=== PATIENT | male | born 1940 | race Caucasian/White ===

== ENCOUNTER → 2023-11-07 09:57 | Outpatient (REF) | payer MEDICARE, OTHER, SELFPAY ==
[2023-11-07 12:14] LABS: Glycohemoglobin (HgbA1c) 7.7 % (4.0-5.6)
== END ==
LOC: HWLAB 09:57
PROVIDERS: ATTENDING PHYSICIAN Internal Medicine
DX: E11.9 Type 2 diabetes mellitus without complications (principal)
CPT/HCPCS: 36415; 83036

== ENCOUNTER → 2024-02-18 10:16 | Outpatient (REF) | payer MEDICARE, OTHER, SELFPAY ==
[2024-02-18 13:16] LABS: Blood Urea Nitrogen 12 mg/dl (9-20); Calcium 9.3 mg/dl (8.4-10.2); Carbon Dioxide 25 mmol/L (22-30); Chloride 106 mmol/L (98-107); Glucose 158 mg/dl (70-99); HDL Cholesterol 66 mg/dl; LDL Cholesterol, Calculated 60 mg/dl; Phosphorus 4.1 mg/dl (2.5-4.5); Potassium 4.3 mmol/L (3.5-5.1); Sodium 139 mmol/L (135-145); Total Cholesterol 143 mg/dl (50-199); Triglyceride 85 mg/dl (10-149); Very Low Density Lipoprotein 17 mg/dl (0-30); eGFR > 60.00
== END ==
LOC: HWLAB 10:16
PROVIDERS: ATTENDING PHYSICIAN Internal Medicine
DX: E11.9 Type 2 diabetes mellitus without complications (principal)
CPT/HCPCS: 36415; 80061; 80069

== ENCOUNTER → 2024-02-23 10:42 | Outpatient (REF) | payer MEDICARE, OTHER, SELFPAY ==
[2024-02-24 08:46] LABS: Glycohemoglobin (HgbA1c) 7.3 % (4.0-5.6)
== END ==
LOC: HWLAB 10:42
PROVIDERS: ATTENDING PHYSICIAN Internal Medicine
DX: E11.9 Type 2 diabetes mellitus without complications (principal)
CPT/HCPCS: 36415; 83036

== ENCOUNTER → 2024-02-27 09:01 | Outpatient (REF) | payer MEDICARE, OTHER, SELFPAY | LOC: RAD 09:01 | PROVIDERS: ATTENDING PHYSICIAN Surgery Vascular Surgery | DX: I77.89 Other specified disorders of arteries and arterioles (principal); I73.9 Peripheral vascular disease, unspecified | CPT/HCPCS: 93922; 93925; 93978 ==

== ENCOUNTER → 2024-05-26 10:38 | Outpatient (REF) | payer MEDICARE, OTHER, SELFPAY ==
[2024-05-26 13:26] LABS: % Basophils 1.4 % (0-2); % Eosinophils 7.3 % (0-6); % Immature Granulocytes 0.4 % (0-0.5); % Lymphocytes 24.2 % (20.5-51.1); % Monocytes 10.2 % (1.7-9.3); % Neutrophils 56.5 % (42.2-75.2); Absolute Basophils 0.1 10^3/uL (0-0.2); Absolute Eosinophils 0.4 10^3/uL (0-0.7); Absolute Lymphocytes 1.2 10^3/uL (1.2-3.4); Absolute Monocytes 0.5 10^3/uL (0.1-0.6); Absolute Neutrophils 2.9 10^3/uL (1.4-6.5); Hematocrit 47.2 % (39.0-52.0); Mean Corp Hgb Conc. 33.9 g/dL (33.0-37.0); Mean Corpuscular Hgb 32.2 pg (27.0-31.0); Mean Platelet Volume 10.2 fL (7.4-10.4); Nucleated Red Blood Cells % 0 % (-); Platelet Count 174 10^3/uL (130-400); Red Blood Cell Count 4.97 10^6/uL (4.70-6.10); Red Cell Dist. Width 14.4 % (11.5-14.5); White Blood Cell Count 5.1 10^3/uL (4.8-10.8)
[2024-05-26 14:05] LABS: Glycohemoglobin (HgbA1c) 7.2 % (4.0-5.6)
[2024-05-26 14:19] LABS: ALT (SGPT) 20 U/L (0-50); AST (SGOT) 26 U/L (17-59); Albumin 3.8 g/dl (3.5-5.0); Alkaline Phosphatase 68 U/L (38-126); Blood Urea Nitrogen 16 mg/dl (9-20); Calcium 9.1 mg/dl (8.4-10.2); Carbon Dioxide 25 mmol/L (22-30); Chloride 103 mmol/L (98-107); Glucose 195 mg/dl (70-99); Potassium 4.4 mmol/L (3.5-5.1); Sodium 140 mmol/L (135-145); Total Bilirubin 0.6 mg/dl (0.2-1.3); Total Protein 6.5 g/dl (6.3-8.2); eGFR > 60.00
[2024-05-26 14:48] LABS: TSH Reflex To Free T4 1.86 uIU/ml (0.47-4.68)
== END ==
LOC: HWLAB 10:38
PROVIDERS: ATTENDING PHYSICIAN Internal Medicine
DX: E11.9 Type 2 diabetes mellitus without complications (principal); R63.4 Abnormal weight loss; R29.6 Repeated falls
CPT/HCPCS: 36415; 80053; 83036; 84443; 85025

== ENCOUNTER → 2024-09-08 10:17 | Outpatient (REF) | payer MEDICARE, OTHER, SELFPAY ==
[2024-09-08 13:35] LABS: Glycohemoglobin (HgbA1c) 7.4 % (4.0-5.6)
== END ==
LOC: HWLAB 10:17
PROVIDERS: ATTENDING PHYSICIAN Internal Medicine
DX: E11.9 Type 2 diabetes mellitus without complications (principal)
CPT/HCPCS: 36415; 83036

== ENCOUNTER → 2024-10-26 12:50 | Outpatient (REF) | payer MEDICARE, OTHER, SELFPAY | LOC: HWRCS 12:50 | PROVIDERS: ATTENDING PHYSICIAN Internal Medicine Cardiovascular Disease; FAMILY PHYSICIAN Internal Medicine | DX: I48.0 Paroxysmal atrial fibrillation (principal) | CPT/HCPCS: 93306 ==

== ENCOUNTER → 2025-01-20 10:52 | Outpatient (REF) | payer MEDICARE, OTHER, SELFPAY ==
[2025-01-20 14:16] LABS: Glycohemoglobin (HgbA1c) 7.3 % (4.0-5.6)
== END ==
LOC: HWLAB 10:52
PROVIDERS: ATTENDING PHYSICIAN Internal Medicine
DX: E11.69 Type 2 diabetes mellitus with other specified complication (principal)
CPT/HCPCS: 36415; 83036

== ENCOUNTER 2025-01-28 13:11 | Emergency (ER) | payer MEDICARE, OTHER, SELFPAY ==
[2025-01-28] VITALS (19 sets, daily range): BP systolic 75–144; BP diastolic 55–89
[2025-01-28 13:40] LABS: % Basophils 1.2 % (0-2); % Eosinophils 2.3 % (0-6); % Immature Granulocytes 0.3 % (0-0.5); % Lymphocytes 24.6 % (20.5-51.1); % Monocytes 9.7 % (1.7-9.3); % Neutrophils 61.9 % (42.2-75.2); Absolute Basophils 0.1 10^3/uL (0-0.2); Absolute Eosinophils 0.1 10^3/uL (0-0.7); Absolute Lymphocytes 1.5 10^3/uL (1.2-3.4); Absolute Monocytes 0.6 10^3/uL (0.1-0.6); Absolute Neutrophils 3.7 10^3/uL (1.4-6.5); Hematocrit 48.5 % (39.0-52.0); Mean Corpuscular Hgb 30.9 pg (27.0-31.0); Mean Corpuscular Volume 93.6 fL (80.0-94.0); Mean Platelet Volume 9.6 fL (7.4-10.4); Nucleated Red Blood Cells % 0 % (-); Platelet Count 173 10^3/uL (130-400); Red Blood Cell Count 5.18 10^6/uL (4.70-6.10); Red Cell Dist. Width 15.5 % (11.5-14.5)
[2025-01-28 14:01] LABS: ALT (SGPT) 22 U/L (0-50); AST (SGOT) 27 U/L (17-59); Albumin 4.1 g/dl (3.5-5.0); Alkaline Phosphatase 76 U/L (38-126); Blood Urea Nitrogen 14 mg/dl (9-20); Calcium 9.2 mg/dl (8.4-10.2); Carbon Dioxide 23 mmol/L (22-30); Chloride 107 mmol/L (98-107); Glucose 155 mg/dl (70-99); Potassium 4.3 mmol/L (3.5-5.1); Sodium 139 mmol/L (135-145); Total Bilirubin 0.8 mg/dl (0.2-1.3); Total Protein 7.1 g/dl (6.3-8.2); eGFR > 60.00
[2025-01-28 15:12] LABS: Troponin I 0.015 ng/ml
--- NOTE | 2025-01-28 15:49 | ED.GENMED ---
History of Present Illness
<Kali Monge PA-C - Last Filed: 01/28/25 19:18>
General
Chief Complaint: Heart Rate Problem
Source: patient
Exam Limitations: none
Time Seen by Provider: 01/28/25 15:25
History of Present Illness
History of Present Illness:
84-year-old male presents in referral from family doctor after family doctor spoke with cardiology. He has history of paroxysmal atrial fibrillation on Xarelto metoprolol succinate 50 mg daily. He was asymptomatic going to his family doctor today
for routine check and he was noticed to be in rapid A-fib. He was sent here for further evaluation. He denies chest pain shortness of breath lightheadedness leg swelling. Really has no complaints offer.
Past History
<Kali Monge PA-C - Last Filed: 01/28/25 19:18>
Past History
ED Past Medical History: NIDDM
ED Past Surgical History: None
Social History
Tobacco: Smoker (A couple cigarettes a week)
Alcohol: None
Drug: None
Personal:
Phy Exam
<Kali Monge PA-C - Last Filed: 01/28/25 19:18>
Physical Exam
Physical Exam:
General: Well-appearing male no acute respiratory distress
HEENT: Normocephalic atraumatic
Heart: Tachycardic and irregular
Lungs: Clear no wheeze
Extremities: No cyanosis or edema
Skin is warm no rash
Course
<Kali Monge PA-C - Last Filed: 01/28/25 19:18>
Orders/Labs/Results
Orders:
Orders
01/28/25 13:13
EKG [Electrocardiogram (*1)] Urgent
Reason for Study: Atrial Fibrillation
EKG- Treatment ONCE
01/28/25 13:30
Complete Blood Count/With Diff Urgent
Comprehensive Metabolic Panel Urgent
Troponin I Urgent
01/28/25 17:42
Propofol [Diprivan] 20 ml .ROUTE .STK-MED
01/28/25 17:57
EKG [Electrocardiogram (*1)] Urgent
Reason for Study: Other
Other Reason for Exam: post cardioversion
01/28/25 17:58
EKG- Treatment ONCE
01/28/25 18:02
Etomidate [Amidate 20 mg] 20 mg .ROUTE .STK-MED ONE
Abnormal Lab Results
01/28/25
13:30
RDW 15.5 H %
(11.5-14.5)
Monocytes % 9.7 H %
(1.7-9.3)
Glucose 155 H mg/dl
(70-99)
01/28/25 13:30
01/28/25 13:30
Vital Signs
Initial and Last Documented VS:
Initial Vital Signs
Temp Pulse Resp BP Pulse Ox
97.7 F 103 16 136/75 96
01/28/25 13:22 01/28/25 13:22 01/28/25 13:22 01/28/25 13:22 01/28/25 13:22
Last Documented Vital Signs
Temp Pulse Resp BP Pulse Ox
98.0 F 75 18 100/74 98
01/28/25 18:41 01/28/25 19:17 01/28/25 19:17 01/28/25 19:17 01/28/25 19:17
<Enriqueta Dent DO - Last Filed: 01/29/25 00:13>
Orders/Labs/Results
Orders:
Orders
01/28/25 13:13
EKG [Electrocardiogram (*1)] Urgent
Reason for Study: Atrial Fibrillation
EKG- Treatment ONCE
01/28/25 13:30
Complete Blood Count/With Diff Urgent
Comprehensive Metabolic Panel Urgent
Troponin I Urgent
01/28/25 17:42
Propofol [Diprivan] 20 ml .ROUTE .STK-MED
01/28/25 17:57
EKG [Electrocardiogram (*1)] Urgent
Reason for Study: Other
Other Reason for Exam: post cardioversion
01/28/25 17:58
EKG- Treatment ONCE
01/28/25 18:02
Etomidate [Amidate 20 mg] 20 mg .ROUTE .STK-MED ONE
Abnormal Lab Results
01/28/25
13:30
RDW 15.5 H %
(11.5-14.5)
Monocytes % 9.7 H %
(1.7-9.3)
Glucose 155 H mg/dl
(70-99)
01/28/25 13:30
01/28/25 13:30
Vital Signs
Initial and Last Documented VS:
Initial Vital Signs
Temp Pulse Resp BP Pulse Ox
97.7 F 103 16 136/75 96
01/28/25 13:22 01/28/25 13:22 01/28/25 13:22 01/28/25 13:22 01/28/25 13:22
Last Documented Vital Signs
Temp Pulse Resp BP Pulse Ox
98.0 F 75 18 100/74 98
01/28/25 18:41 01/28/25 19:17 01/28/25 19:17 01/28/25 19:17 01/28/25 19:17
Procedures
Ericksonlt;Kali Monge PA-C - Last Filed: 01/28/25 19:18>
Moderate Sedation
ASA Risk Score: Class II
Chart and allergies reviewed: Yes
Consent for anesthesia obtained: Yes
Time out completed (validating right patient & procedure): Yes
Moderate Sedation Start Time(when first medication is given): 18:04
History of difficult intubation: No
Airway free of obstruction: Yes
Patient has a gag reflex: Yes
Patient is able to open mouth: Yes
Patient has no dentures: Yes
Patient has no loose teeth: Yes
Medication administered by Provider during Moderate Sedation: Other (etomidate)
Total dose administered: 20
Time drug administered: 18:04
Moderate Sedation Procedure End Time: 18:19
<Kali Monge PA-C - Last Filed: 01/28/25 19:18>
MDM/Problems Addressed
Differential Diagnosis Includes:
Patient sent in for rapid atrial fibrillation. He is asymptomatic. Blood pressure stable no signs of heart failure. EKG demonstrates rapid A-fib. Patient is anticoagulated on metoprolol succinate 50 mg daily for rate control
<Kali Monge PA-C - Last Filed: 01/28/25 19:18>
*Critical Care Note
Total Time (30-74mins, 75-104mins- exclusive of procedures): Not Applicable
<Kali Monge PA-C - Last Filed: 01/28/25 19:18>
Update Note
Update Note:
Discussed findings with cardiology. Cardiology recommended cardioversion. Just prior to cardioversion the patient was hypotensive. Etomidate was used for sedation. A total of 2 shocks were required synchronized 2 at 200 J. The second shock did
convert the patient back to sinus rhythm. Blood pressure has improved. He has been ambulatory here and recovered from sedation. Stable for discharge
ED Attending Note
<aKli Monge PA-C - Last Filed: 01/28/25 19:18>
-
Portions of this chart may have been created with voice recognition software.� Occasional wrong word or��sound alike� substitutions may have occurred due to the inherent limitations of voice recognition software.
<Enriqueta Dent, DO - Last Filed: 01/29/25 00:13>
ED Attending Note
Patient seen and examined by attending physician: Yes
I performed the substantive portion of visit, reviewed & personally made and approve the management plan that is documented in note by myself or ALEXA.: Yes
ED Attending Note:
I have reviewed and agree with Kali Monge PA-C's history and treatment plan. Heart tachycardic, irregularly irregular. Just prior to cardioversion, patient became hypotensive. Used etomidate for sedation. Patient successfully
cardioverted, blood pressure improved immediately. Stable for discharge with cardiology follow-up
Discharge Plan
Departure
Patient Disposition: Home (Routine Discharge)
Date of Disposition: 01/28/25
Time of Disposition: 19:17
Patient with high blood pressure during this ER visit?: No
Discharge Problem:
Atrial fibrillation
Instructions: Atrial Fibrillation (DC), MODERATE SEDATION ADULT
Prescriptions:
No Action
acetaminophen [Tylenol Extra Strength] 500 MG tablet
500 - 1,000 mg PO DAILYPRN PRN (Reason: headache)
Xarelto 20 MG tablet
20 mg PO QPM
glimepiride 1 MG tablet
4 mg PO DAILY
cyanocobalamin (vitamin B-12) [Vitamin B-12] 1,000 mcg Tablet
1,000 mcg PO DAILY
simvastatin 20 mg Tablet
20 mg PO DAILY
Jardiance 10 mg Tablet
10 mg PO DAILY
Referrals:
Phuc Joyner MD [Family Provider, Internal Medicine]
Activity Restrictions/Additional Instructions:
Continue current medication regimen. Return if worse otherwise follow-up with your automotive glass specialist
Interventions
Interventions:
*Risk Screen - Suicide Last Done: 01/28/25 13:22
*General Assessment Last Done: 01/28/25 19:19
*Neglect/Abuse Screening Last Done: 01/28/25 13:22
*ED- Fall Risk Assessment Last Done: 01/28/25 17:58
*ED COVID-19 Vaccine History Last Done: 01/28/25 17:58
*Nursing Disposition Last Done: 01/28/25 19:19
ED- Cardiac Assessment Last Done: 01/28/25 15:37
ED- Pulmonary Assessment Last Done: 01/28/25 15:37
Discharge Date and Time
Discharge Date/Time: 01/28/25 19:19
Print Language: HUNGARIAN
== END 2025-01-28 19:19 | disposition home or self-care (01) ==
LOC: EMR 13:11
PROVIDERS: Emergency Medicine; EMERGENCY PHYSICIAN Emergency Medicine; FAMILY PHYSICIAN Internal Medicine
DX: I48.91 Unspecified atrial fibrillation (principal); E11.9 Type 2 diabetes mellitus without complications; F17.210 Nicotine dependence, cigarettes, uncomplicated; Z79.01 Long term (current) use of anticoagulants
CPT/HCPCS: 92960; 99152; 99285; 80053; 84484; 85025; 93005

== ENCOUNTER → 2025-03-07 10:03 | Outpatient (REF) | payer MEDICARE, OTHER, SELFPAY | LOC: DHVS 10:03 | PROVIDERS: ATTENDING PHYSICIAN Surgery Vascular Surgery; FAMILY PHYSICIAN Internal Medicine | DX: I73.9 Peripheral vascular disease, unspecified (principal) | CPT/HCPCS: 93922; 93925; 93978 ==

== ENCOUNTER → 2025-06-08 08:54 | Outpatient (REF) | payer MEDICARE, OTHER, SELFPAY ==
[2025-06-08 12:30] LABS: Hematocrit 48.3 % (39.0-52.0); Hemoglobin 16.5 g/dL (13.0-18.0); Mean Corp Hgb Conc. 34.2 g/dL (33.0-37.0); Mean Corpuscular Volume 96.2 fL (80.0-94.0); Nucleated Red Blood Cells % 0 % (-); Platelet Count 156 10^3/uL (130-400); Red Cell Dist. Width 14.2 % (11.5-14.5)
[2025-06-08 12:39] LABS: Urine Character Clear (Clear)
[2025-06-08 12:40] LABS: ALT (SGPT) 24 U/L (0-50); AST (SGOT) 25 U/L (17-59); Albumin 3.9 g/dl (3.5-5.0); Alkaline Phosphatase 75 U/L (38-126); Blood Urea Nitrogen 14 mg/dl (9-20); Calcium 8.7 mg/dl (8.4-10.2); Carbon Dioxide 26 mmol/L (22-30); Chloride 107 mmol/L (98-107); Glucose 184 mg/dl (70-99); HDL Cholesterol 62 mg/dl; LDL Cholesterol, Calculated 67 mg/dl; Potassium 4.1 mmol/L (3.5-5.1); Sodium 140 mmol/L (135-145); Total Protein 6.9 g/dl (6.3-8.2); Very Low Density Lipoprotein 15 mg/dl (0-30); eGFR > 60.00
[2025-06-08 13:01] LABS: Urine Red Blood Cell 0-2 /HPF (0-2); Urine White Cell 0-2 /HPF (0-5)
== END ==
LOC: HWLAB 08:54
PROVIDERS: ATTENDING PHYSICIAN Internal Medicine
DX: E78.2 Mixed hyperlipidemia (principal); I10 Essential (primary) hypertension; I48.0 Paroxysmal atrial fibrillation
CPT/HCPCS: 36415; 80053; 80061; 81003; 81015; 85025